=== PATIENT | male | born 1960 | race Hispanic/Latino ===

== ENCOUNTER → 2017-06-07 | Outpatient (CLI) | payer BC ==
--- NOTE | 2017-06-07 16:44 | Diagnostic Imaging Report ---
PROCEDURE:X-RAY ABDOMEN - KUB COMPARISON:Patients [facility], DX, ABDOMEN-1VIEW (KUB), 07/27/2016, 8:17. INDICATIONS:CALCULUS OF KIDNEY FINDINGS: There is a non-obstructed bowel-gas pattern. There are no calcifications projected over the renal shadows, expected course of the ureters or bladder. A calculus in the lower pole left kidney is no longer visualized. Osseous structures are stable degenerative changes of the lumbar spine. There are moderate to severe degenerative changes of the right hip, somewhat progressed compared to previous exam. No degenerative changes of the left hip. CONCLUSION: No radiographic evidence of calculi. CT is a more sensitive modality to identify tiny calculi. The moderate to severe degenerative changes of the right hip, progressed compared to previous exam. Dictated by: Tray Cash M.D. on 06/07/2017 at 16:45 Electronically approved by: Tray Cash M.D. on 06/07/2017 at 16:45
== END ==
LOC: RAD 15:51
PROVIDERS: ATTEND Urology
DX: N20.0 Calculus of kidney (principal)
CPT/HCPCS: 74018

== ENCOUNTER → 2019-08-08 | Outpatient (CLI) | payer BC ==
--- NOTE | 2019-08-08 13:05 | Diagnostic Imaging Report ---
Exam: KUB - 2 views Indication: Renal calculus Comparison: None Findings: No radiographically apparent urinary calculi. Nonobstructive bowel gas pattern. No free air. No acute osseous injury. Status post right total hip replacement. Mild degenerative changes of the visualized spine and qawalangin left hip joint. Impression: No radiographically apparent urinary calculi. Signed by: Guilherme Yu MD on 08/08/2019 1:02 PM
== END ==
LOC: RAD 12:05
PROVIDERS: ATTEND Urology
DX: N20.0 Calculus of kidney (principal)
CPT/HCPCS: 74018

== ENCOUNTER → 2023-01-17 | Outpatient (REF) | payer BC ==
[~2023-01-17] MED LIST: FUROSEMIDE INJ 10 MG/ML 4 ML VIAL ONE; IOPAMIDOL 370 MG/ML 100 ML INFUS..BTL INJ ONE
[2023-01-17 09:33] LABS: CREATININE, SERUM 1.54 mg/dL (0.72-1.25)
== END ==
LOC: NM 08:09
PROVIDERS: ATTEND Urology
DX: N20.0 Calculus of kidney (principal); N13.1 Hydronephrosis with ureteral stricture, not elsewhere classified; K86.9 Disease of pancreas, unspecified; Z87.442 Personal history of urinary calculi
CPT/HCPCS: 36415; 74178; 78708; 82565; 84520; A9562; J1940; Q9967